=== PATIENT | female | born 1995 | race Caucasian/White ===

== ENCOUNTER 2016-02-15 16:01 | Emergency (ER) | payer OTHER ==
[~2016-02-15] VITALS: Ht 162.6 cm; Wt 60.1 kg
[2016-02-15 16:06] VITALS: BP 107/78; PULSE 77; RESP 16; TEMP 97.9; O2SAT 100
--- NOTE | 2016-02-15 16:28 | PD ---
HPI Chief Complaint: X Ray Technician Problem/Complaint Time Seen by Provider: 16:20 Travel History International Travel<30 days: No Contact w/Intl Traveler<30days: No Traveled to known affect area: No History of Present Illness HPI This is a 20-year-old female who presents to the emergency department with 2 months of intermittent pelvic abdominal pain, cramping, mild, worse during and after intercourse, acutely worsening over the past 2 days having started during intercourse last night and persisting this morning, currently a 4 out of 10. She also reports she's been having vaginal bleeding and spotting which is unusual for her. She's had her IUD in for over a year and doesn't get her menstrual cycle area she denies any fevers or chills and denies any diarrhea, constipation, dysuria, frequency or urgency. PFSH Past Medical History Medical History: Denies Significant Hx ?: Not LMP: has a IUD Social History Tobacco Use: Yes Allergies-Medications (Allergen,Severity, Reaction): Coded Allergies: No Known Allergies (Unverified , 02/15/16) Reported Meds & Prescriptions Reported Meds & Active Scripts Active Reported Abilify (Aripiprazole) 2 Mg Tab 2 Mg PO DAILY Lamictal XR (Lamotrigine) 300 Mg Veronica 300 Mg PO DAILY Wellbutrin Xl 24 HR (Bupropion HCl) 300 Mg Tab 300 Mg PO DAILY Gabapentin 300 Mg Cap 300 Mg PO BID Review of Systems Except as stated in HPI: all other systems reviewed are Neg Physical Exam Narrative GENERAL:Well appearing, no acute distress SKIN: Warm and dry. HEAD: Atraumatic. Normocephalic. EYES: Pupils equal and round. No injection or drainage. ENT: Moist mucous membranes NECK: Trachea midline. CARDIOVASCULAR: Regular rate and rhythm. No murmur appreciated. RESPIRATORY: Clear to auscultation. Breath sounds equal bilaterally. GASTROINTESTINAL: Abdomen soft, mildly tender to palpation in the lower abdomen with no rebound or guarding. MUSCULOSKELETAL: No obvious deformities. NEUROLOGICAL: Awake and alert. No obvious cranial nerve deficits. Moving all extremities. PSYCHIATRIC: Appropriate mood and affect; insight and judgment normal. Data Data Last Documented VS Vital Signs Date Time Temp Pulse Resp B/P Pulse Ox O2 Delivery O2 Flow Rate FiO2 02/15/16 17:46 58 16 90/49 100 Room Air 02/15/16 16:06 97.9 Orders Urinalysis - C+S If Indicated (02/15/16 16:10) Ed Urine Pregnancytest Poc (02/15/16 16:10) Us Pelvis Comp X Ray Technician/Non-Preg (02/15/16 ) Labs Laboratory Tests Test 02/15/16 16:30 Urine Collection Type CLEAN CATCH Urine Color YELLOW Urine Turbidity CLEAR Urine pH 5.5 Urine Specific [place] 1.009 Urine Protein NEG mg/dL Urine Glucose (UA) NEG mg/dL Urine Ketones NEG mg/dL Urine Occult Blood TRACE Urine Nitrite NEG Urine Bilirubin NEG Urine Leukocyte Esterase NEG Urine RBC 0-3 /hpf Urine WBC 0-2 /hpf Urine Squamous Epithelial 0-5 /hpf Cells Microscopic Urinalysis Comment CULT NOT INDICATED Urine Collection Time 16:30 MDM Medical Decision Making Medical Screen Exam Complete: Yes Emergency Medical Condition: Yes Interpretation(s) Afebrile, no tachycardia, normotensive Urinalysis: No infection Ultrasound: IUD in place, otherwise reassuring Differential Diagnosis , miscarriage, ectopic , IUD migration Narrative Course This is a 20-year-old female who presents to the emergency department with lower abdominal pain and some vaginal bleeding following intercourse. She has a benign physical exam. Her pelvic exam is unremarkable. Ultrasound demonstrates her IUD is in place, test is negative. She is otherwise very well-appearing. I don't think she requires any additional labs or imaging. Patient can follow-up with her outpatient merchandise director. Diagnosis Primary Impression: Pelvic pain Patient Instructions: General Instructions Additional Instructions: If you develop severe abdominal pain, vomiting, fever or inability to eat return to the emergency room. Return to the emergency department if you: Need to use both tampons and pads at the same time because you are bleeding so much Need to change your pad or tampon during the night Or are feeling lightheaded, weak, dizzy, have chest pain, shortness of breath or are having difficulty exerting yourself Med/Other Pt SpecificInfo: No Change to Meds Disposition: 01 DISCHARGE HOME Condition: Stable Lisbet Plascencia MD Feb 15, 2016 16:28
[2016-02-15 16:36] LABS: BLOOD, URINE TRACE (NEG); GLUCOSE,URINE NEG (NEG); KETONE, URINE NEG (NEG); NITRITE,URINE NEG (NEG); PH, URINE 5.5 (5.0-8.5)
[2016-02-15] MEDS ORDERED: WELLTAB39 PO (16:36)
[2016-02-15] MEDS ORDERED: ABIL2TAB2 PO (16:36)
[2016-02-15] MEDS ORDERED: LAMI300T PO (16:36)
[2016-02-15] MEDS ORDERED: GABA300C5 PO (16:36)
[2016-02-15 16:43] LABS: COMMENT (UR) CULT NOT INDICATED; CULTURE IF INDICATED CULT NOT INDICATED; METHOD OF COLLECTION CLEAN CATCH; RBC, URINE 0-3 /hpf (0-3); SQUAMOUS EPITHELIAL CELL URINE 0-5 /hpf (0-5); URINE COLOR YELLOW (YELLW/STRAW); WBC, URINE 0-2 /hpf (0-5)
[2016-02-15 17:46] VITALS: BP 90/49; PULSE 58; RESP 16; O2SAT 100
--- NOTE | 2016-02-15 18:03 | RADHPO ---
EXAM DATE/TIME: 02/15/2016 22:20 [facility] COMPARISON: No previous studies available for comparison. INDICATIONS : Cramping and pelvic pain. MEDICAL HISTORY : IUD, Mirena. SURGICAL HISTORY : Knee surgery. ENCOUNTER: Initial ACUITY: 1 month PAIN SCORE: 4/10 LOCATION: Bilateral pelvis MEASUREMENTS: UTERUS: 6.8 x 2.9 x 4.5 cm ENDOMETRIAL STRIPE: 4 mm RIGHT OVARY: 4.2 x 2.1 x 2.3 cm LEFT OVARY: 4.0 x 2.0 x 2.7 cm FINDINGS: UTERUS: The myometrium has homogeneous echotexture without mass. IUD it properly positioned in th e cavity RIGHT OVARY: Ovary contains no mass or significant cystic lesion. LEFT OVARY: Ovary contains no mass or significant cystic lesion. MISCELLANEOUS: No free fluid. CONCLUSION: IUD appropriately positioned in the endometrial cavity. Otherwise normal Goyo Pollard MD on February 15, 2016 at 18:01 Board Certified Radiologist. This report was verified electronically.
== END 2016-02-15 19:06 | disposition home or self-care (01) ==
LOC: PHED 16:01
DX: R10.2 Pelvic and perineal pain (principal); N93.9 Abnormal uterine and vaginal bleeding, unspecified; R25.2 Cramp and spasm
CPT/HCPCS: 76856; 81001; 84703

== ENCOUNTER 2016-05-28 14:34 | Emergency (ER) | payer OTHER ==
[~2016-05-28] VITALS: Ht 162.6 cm; Wt 60.0 kg
[~2016-05-28 14:34] MED LIST: ABIL2TAB2 PO; GABA300C5 PO; LAMI300T PO; WELLTAB39 PO
[2016-05-28 14:36] VITALS: BP 122/89; PULSE 103; RESP 17; TEMP 98.2; O2SAT 98
--- NOTE | 2016-05-28 14:47 | PD ---
Physical Exam Time Seen by Provider: 14:43 Narrative 20yo F c/o syncopal episode about an hour ago. Thinks she hit her head on R side. Was in bathroom w/ nausea prior to event. Reports pain from upper back down to lower back. Ambulatory in traige. Patient stable. Patient seen in triage. Awaiting bed placement. Data Data Last Documented VS Vital Signs Date Time Temp Pulse Resp B/P Pulse Ox O2 Delivery O2 Flow Rate FiO2 05/28/16 14:36 98.2 103 17 122/89 98 MDM Supervised Visit with AGATHA: Abbey Fleming May 28, 2016 14:47
[2016-05-28] MEDS ORDERED: SODIUM CHLOR 0.9% 1000 ML INJ 1,000 ML IV ONE (17:33)
[2016-05-28] MEDS ORDERED: SODIUM CHLORIDE 0.9% FLUSH 10 ML FLUSH IVF PRN (17:45)
[2016-05-28] MEDS ORDERED: KETOROLAC TROMETHAMINE 30 MG/ML (IVP) VIAL IV PUSH ONE (17:45)
[2016-05-28] MEDS ORDERED: MOTR200T4 PO (17:54)
--- NOTE | 2016-05-28 17:54 | PD ---
HPI Chief Complaint: Syncope/Near-Syncope Time Seen by Provider: 17:20 Travel History International Travel<30 days: No Contact w/Intl Traveler<30days: No Traveled to known affect area: No History of Present Illness HPI The patient is 20 years old. She reports a syncope episode which occurred about 4-5 hours prior to ER arrival. This morning she had coffee and a sandwich , decreased overall oral intake for her, and around 12:30PM she went to the bathroom due to nausea. She reports violent nausea for about 1 hour with dry heaving however no actual vomiting. She reports falling onto the bathroom stall wall and then to the ground. She went home afterward and was advised by friends to undergo ER evaluation. No incontinence or oropharyngeal trauma accompanied the fall/LOC. In the ER she complains of pain throughout the entirety of the back, an achy quality. Last year similar event occurred when she stood up in the morning and she reports it was due to decreased water intake. She takes gabapentin, Lamictal, Abilify and Wellbutrin. She has a surgery of left ACL reconstruction. No chest pain or shortness of breath in the ER. PFSH Past Medical History Diminished Hearing: No Reproductive: Yes (painful periods) Immunizations Current: Yes ?: Not LMP: IUD Social History Alcohol Use: No Tobacco Use: Yes Substance Use: No Allergies-Medications (Allergen,Severity, Reaction): Coded Allergies: No Known Allergies (Unverified , 05/28/16) Reported Meds & Prescriptions Reported Meds & Active Scripts Active Motrin Ib (Ibuprofen) 200 Mg Tab 400 Mg PO Q6H PRN Reported Abilify (Aripiprazole) 2 Mg Tab 2 Mg PO DAILY Lamictal XR (Lamotrigine) 300 Mg Veronica 300 Mg PO DAILY Wellbutrin Xl 24 HR (Bupropion HCl) 300 Mg Tab 300 Mg PO DAILY Gabapentin 300 Mg Cap 300 Mg PO BID Review of Systems Except as stated in HPI: all other systems reviewed are Neg General / Constitutional: No: Fever Musculoskeletal: Positive: Pain (total back pain) Physical Exam Narrative GENERAL: 20 yo F, WNWD, no acute distress SKIN: Warm and dry. HEAD: Atraumatic. Normocephalic. EYES: Pupils equal and round. No scleral icterus. No injection or drainage. ENT: No nasal bleeding or discharge. Mucous membranes pink and moist. NECK: Trachea midline. No JVD. CARDIOVASCULAR: Regular rate and rhythm. RESPIRATORY: No accessory muscle use. Clear to auscultation. Breath sounds equal bilaterally. GASTROINTESTINAL: Abdomen soft, non-tender, nondistended. Hepatic and splenic margins not palpable. MUSCULOSKELETAL: Extremities without clubbing, cyanosis, or edema. No obvious deformities. No focal vertebral spine tenderness. No TTP about the paraspinal soft/musculature. NEUROLOGICAL: Awake and alert. No obvious cranial nerve deficits. Motor grossly within normal limits. Five out of 5 muscle strength in the arms and legs. Normal speech. PSYCHIATRIC: Appropriate mood and affect; insight and judgment normal. Data Data Last Documented VS Vital Signs Date Time Temp Pulse Resp B/P Pulse Ox O2 Delivery O2 Flow Rate FiO2 05/28/16 18:49 18 98 Room Air 05/28/16 16:56 92 05/28/16 14:36 98.2 122/89 VS reviewed Orders Electrocardiogram (05/28/16 17:33) Basic Metabolic Panel (Bmp) (05/28/16 17:33) Ed Urine Pregnancytest Poc (05/28/16 17:33) Complete Blood Count With Diff (05/28/16 17:33) Ckmb (Isoenzyme) Profile (05/28/16 17:33) Urinalysis - C+S If Indicated (05/28/16 17:33) Ecg Monitoring (05/28/16 17:33) Iv Access Insert/Monitor (05/28/16 17:33) Oximetry (05/28/16 17:33) Sodium Chloride 0.9% Flush (Ns Flush) (05/28/16 17:45) Sodium Chlor 0.9% 1000 Ml Inj (Ns 1000 M (05/28/16 17:33) Ketorolac Inj (Toradol Inj) (05/28/16 17:45) Labs Laboratory Tests Test 05/28/16 18:45 White Blood Count 8.1 TH/MM3 Red Blood Count 4.85 MIL/MM3 Hemoglobin 14.6 GM/DL Hematocrit 43.4 % Mean Corpuscular Volume 89.3 FL Mean Corpuscular Hemoglobin 30.0 PG Mean Corpuscular Hemoglobin 33.6 % Concent Red Cell Distribution Width 13.9 % Platelet Count 176 TH/MM3 Mean Platelet Volume 7.6 FL Neutrophils (%) (Auto) 90.3 % Lymphocytes (%) (Auto) 3.9 % Monocytes (%) (Auto) 5.0 % Eosinophils (%) (Auto) 0.2 % Basophils (%) (Auto) 0.6 % Neutrophils # (Auto) 7.3 TH/MM3 Lymphocytes # (Auto) 0.3 TH/MM3 Monocytes # (Auto) 0.4 TH/MM3 Eosinophils # (Auto) 0.0 TH/MM3 Basophils # (Auto) 0.0 TH/MM3 CBC Comment DIFF FINAL Differential Comment Urine Color LIGHT-YELLOW Urine Turbidity CLEAR Urine pH 5.5 Urine Specific [place] 1.010 Urine Protein NEG mg/dL Urine Glucose (UA) NEG mg/dL Urine Ketones NEG mg/dL Urine Occult Blood NEG Urine Nitrite NEG Urine Bilirubin NEG Urine Urobilinogen LESS THAN 2.0 MG/DL Urine Leukocyte Esterase NEG Urine RBC 1 /hpf Urine Squamous Epithelial <1 /hpf Cells Urine Bacteria RARE /hpf Microscopic Urinalysis Comment CULT NOT INDICATED Sodium Level 137 MEQ/L Potassium Level 4.4 MEQ/L Chloride Level 102 MEQ/L Carbon Dioxide Level 25.1 MEQ/L Anion Gap 10 MEQ/L Blood Urea Nitrogen 13 MG/DL Creatinine 0.84 MG/DL Estimat Glomerular Filtration 87 ML/MIN Rate Random Glucose 93 MG/DL Calcium Level 8.6 MG/DL Total Creatine Kinase 70 U/L [facility] Medical Decision Making Medical Screen Exam Complete: Yes Emergency Medical Condition: Yes Medical Record Reviewed: Yes Differential Diagnosis arrhythmia, vasovagal event, electrolyte imbalance, IUP, anemia Narrative Course EKG: Sinus, rate 80, normal axis/intervals, no pre-excitation morphology CBC & BMP Diagram 05/28/16 18:45 UPreg negative UA negative The patient is resting comfortably and feels better, is alert and in no distress. The patients results and examination findings were discussed. The repeat examination is unremarkable and benign. The history, exam, diagnostic testing, and current condition do not suggest any significant pathology to warrant further testing, continued ED treatment, admission, or surgical evaluation at this point. The vital signs have been stable. The patient does not have uncontrollable pain, intractable vomiting, or other significant symptoms. The patient's condition is stable and appropriate for discharge. The patient will pursue further outpatient evaluation with a primary care physician or other designated or consulting physician as indicated in the discharge instructions. The patient expressed understanding and was agreeable with this plan. Diagnosis Primary Impression: Syncope and collapse Additional Impression: Back pain Qualified Code: M54.9 - Back pain, unspecified back location, unspecified back pain laterality, unspecified chronicity Referrals: Primary Care Physician 2 days Additional Instructions: You have a choice when it comes to health care, and we are glad that you chose [facility]. Hopefully, we have met your expectations on today's visit. You are welcome to return to [facility] at any time, as we are committed to meeting the health care needs of our community. Med/Other Pt SpecificInfo: Prescription(s) given Scripts Ibuprofen (Motrin Ib)200 Mg [id number] Mg PO Q6H PRN (PAIN SCALE 4 TO 10) #20 TAB Ref 0 Prov:Bowen Holman MD 05/28/16 Disposition: 01 DISCHARGE HOME Condition: Stable Bowen Holman MD May 28, 2016 17:54
[2016-05-28 18:49] VITALS: RESP 18; O2SAT 98
[2016-05-28 19:19] LABS: AUTOMATED NEUTROPHIL # 7.3 TH/MM3 (1.8-7.7); BASOPHIL % 0.6 % (0.0-2.0); EOSINOPHIL % 0.2 % (0.0-4.0); HEMATOCRIT 43.4 % (35.0-46.0); HEMO FLAGS DIFF FINAL; LYMPH % 3.9 % (9.0-44.0); LYMPHOCYTE # 0.3 TH/MM3 (1.0-4.8); MEAN CELL VOLUME 89.3 FL (80.0-100.0); MEAN CORPUSCULAR HGB CONC 33.6 % (32.0-36.0); NEUT % 90.3 % (16.0-70.0); PLATELET COUNT 176 TH/MM3 (150-450); RED BLOOD COUNT 4.85 MIL/MM3 (4.00-5.30); RED CELL DISTRIBUTION WIDTH 13.9 % (11.6-17.2); WHITE BLOOD COUNT 8.1 TH/MM3 (4.0-11.0)
[2016-05-28 19:22] LABS: BACTERIA, URINE RARE /hpf; BLOOD, URINE NEG (NEG); COMMENT (UR) CULT NOT INDICATED; CULTURE IF INDICATED CULT NOT INDICATED; GLUCOSE,URINE NEG (NEG); KETONE, URINE NEG (NEG); NITRITE,URINE NEG (NEG); PH, URINE 5.5 (5.0-8.5); SQUAMOUS EPITHELIAL CELL URINE <1 /hpf (0-5); URINE COLOR LIGHT-YELLOW (YELLW/STRAW)
[2016-05-28 19:35] LABS: BICARBONATE 25.1 MEQ/L (21.0-32.0); POTASSIUM 4.4 MEQ/L (3.5-5.1)
--- NOTE | 2016-05-29 18:44 | EKG ---
Date Performed: 05/28/2016 Time Performed: 18:59:38 PTAGE: 20 years EKG: Sinus rhythm NORMAL ECG INTERPRETATION BASED ON A DEFAULT AGE OF 41 YEARS NO PREVIOUS TRACING DOCTOR: Charlie Trinh Interpretating Date/Time 05/29/2016 18:40:28
== END 2016-05-28 20:20 | disposition home or self-care (01) ==
LOC: NEPD 14:34
DX: R55 Syncope and collapse (principal); M54.9 Dorsalgia, unspecified; R11.0 Nausea; W01.0XXA Fall on same level from slipping, tripping and stumbling without subsequent striking against object, initial encounter; Y93.89 Activity, other specified
CPT/HCPCS: 80048; 81001; 82550; 84703; 85025; 93005; 96374; 99284; J1885; J7030